=== PATIENT | male | born 1930 | race African-American/Black ===

== ENCOUNTER → 2016-05-28 | Day surgery (SDC) | payer MEDICARE, MEDICAID ==
--- NOTE | 2016-05-24 10:43 | Pre-Procedure Note/Attestation ---
Pre-Procedure Note/Attestation Complete Prior to Procedure Planned Procedure: right Procedure Narrative: phaco with IOL Indications for Procedure Pre-Operative Diagnosis: cataract Attestation I attest that I discussed the nature of the procedure; its benefits; risks and complications; and alternatives (and the risks and benefits of such alternatives ), prior to the procedure, with the patient (or the patient's legal enrollment representative). I attest that, if there was a reasonable possibility of needing a blood transfusion, the patient (or the patient's legal enrollment representative) was given the [facility] standardized written summary, pursuant to the [place] Blood Safety Act ([place] Health and Safety Code # 1645, as amended). I attest that I re-evaluated the patient just prior to the surgery and that there has been no change in the patient's H&P, except as documented below: JENAE SALGADO May 24, 2016 10:43
--- NOTE | 2016-05-24 10:45 | Opthalmology H&P ---
Ophthalmology H&P H&P Chief Complaint: decreased vision in right eye HPI Vision Affects Ability to: read, focus/use eyes together, manage personal affairs HPI Narrative blurry vision Exam Visual Acuity: OD: 20/60 OS; 20/60 Tension: OD: 16 OS: 14 Eye Exam: normal OU: anterior chambers, corneas, external exam, levator function, marginal reflex distance, palpebral fissure-width, findings: fundus exam - AMD OU, lens - OD: ns OS: ns Attestation Attestation The risks and benefits of the surgery as well as alternative procedures were explained to the patient in detail. JENAE SALGADO May 24, 2016 10:45
[~2016-05-28] VITALS: Ht 174 cm; Wt 61.2 kg
[2016-05-28] VITALS (10 sets, daily range): BP systolic 148–177; BP diastolic 67–95
[~2016-05-28] MED LIST: Akten 3.5% 1ml Btl RIGHT EYE ONE; BSS 15ml BTL ONE; BSS 500ml btl ONE; Dexamethasone 4mg/ml vial ONE; EPINEPHrine 1mg/1ml Amp ONE; LR 1000ml ONE; LYRICA75 M1 ORAL; Maxitrol Opth Oint 3.5gm ONE; Midazolam 2mg/2ml Inj ONE; NS Irrig 1000ml ONE; OMEPRAZOLE20 M2 ORAL; POLYETHYLENE GL17 GM ORAL; Povidone-Iodine 5% opth solution ONE; Pred Forte 1% Opth Susp 1ml ONE; SIMVASTATIN80 MG ORAL; STOOL SOFTENER100 MG PO; Sodium Hyaluronate 14 mg/ml 0.85ml ONE; Sterile Water Irrig 1000ml IRRIG ONE; TAMSULOSIN HCL0.4 MG ORAL; Tobramycin Op Soln 0.3% RIGHT EYE ONE; ZETIA10 MG ORAL
[2016-05-28] MEDS: Diclofenac Sod 0.1% Op Soln RIGHT EYE SCH ×3 (09:02→09:19)
[2016-05-28] MEDS: Tropicamide 1% Opth Soln RIGHT EYE SCH ×3 (09:02→09:19)
[2016-05-28] MEDS: Phenylephrine 10% Opth Soln 5ml RIGHT EYE SCH ×3 (09:03→09:19)
[2016-05-28] MEDS: Cyclopentolate 1% Opth Sol RIGHT EYE SCH ×3 (09:04→09:19)
--- NOTE | 2016-05-28 10:52 | Immediate Post-Op Evaluation ---
Immediate Post-Op Evalulation Immediate Post-Op Evalulation Procedure: cataract extraction right eye Date of Evaluation: May 28, 2016 Time of Evaluation: 10:51 IV Fluids: 300 Blood Pressure Systolic: 140 Blood Pressure Diastolic: 60 Pulse Rate: 74 Respiratory Rate: 14 O2 Sat by Pulse Oximetry: 99 Nausea: No Vomiting: No Complications none Patient Status: awake, reacts, patent Hydration Status: adequate Drug: none BENITORIJONATHAN MARQUEZ [employer]PER REPAIR May 28, 2016 10:52
--- NOTE | 2016-05-28 10:55 | Anethesia Preoperative Eval ---
Anesthesia Pre-op PMH/ROS General Date of Evaluation: May 28, 2016 Time of Evaluation: 10:00 Anesthesiologist: jin ASA Score: ASA 2 Mallampati Score Class I : Soft palate, uvula, fauces, pillars visible Class II: Soft palate, uvula, fauces visible Class III: Soft palate, base of uvula visible Class IV: Only hard plate visible Mallampati Classification: Class II Surgeon: aicha Diagnosis: cataract Surgical Procedure: cataract extraction with IOL Anesthesia History: none Family History: no anesthesia problems Allergies: Coded Allergies: No Known Allergies (Unverified , 05/24/16) Past Medical History Cardiovascular: Reports: HTN Gastrointestinal/Genitourinary: Denies: CRI, ESRD, GERD, other Neurologic/Psychiatric: Reports: other - BPH Endocrine: Denies: DM, hypothyroidism, other, steroids HEENT: Reports: cataract (L) Hematology/Immune: Denies: DVT, anemia, bleeding disorder, other Anesthesia Pre-op Phys. Exam Physician Exam Last Vital Signs Date Time Temp Pulse Resp B/P Pulse Ox O2 Delivery O2 Flow Rate FiO2 05/28/16 09:13 97.5 52 18 148/67 98 Room Air Constitutional: NAD Neurologic: CN 2-12 intact Cardiovascular: RRR Respiratory: CTA Gastrointestinal: S/NT/ND Airway Exam Mallampati Score: Class II MO: full ROM: full Dentures: no lower, no upper Anesthesia Pre-op A/P Studies Pre-op Studies: EKG - SR Risk Assessment & Plan Assessment: denies recent changes in health Plan: mac Status Change Before Surgery: No Pre-Antibiotics Drug: none JONATHAN HUERTA CRNA May 28, 2016 10:55
--- NOTE | 2016-05-28 11:59 | 48 Hour Post Anesthesia Eval ---
Post Anesthesia Evaluation Procedure: cataract extraction right eye Date of Evaluation: May 28, 2016 Time of Evaluation: 11:58 Blood Pressure Systolic: 168 0: 50 Pulse Rate: 74 Temperature (Fahrenheit): 98 Airway: patent Nausea: No Vomiting: No Hydration Status: adequate Mental Status/LOC: patient returned to baseline Post-Anesthesia Complications: none Follow-up care needed: N/A JONATHAN HUERTA CRNA May 28, 2016 11:59
--- NOTE | 2016-05-28 14:58 | Brief Operative Note ---
Immediate Post Operative Note Operative Note Chief Complaint: blurry vision Pre-op Diagnosis: cataract, OD Procedure: phaco with IOL, OD Post-op Diagnosis: Pseudophakia, OD Post-op Diagnosis: same as pre-op Findings: consistent w/pre-op dx studies Surgeon: Dilcia Anesthesiologist: Johan Anesthesia: MAC Specimen: none Complications: none Condition: stable Estimated Blood Loss: none Drains: none Implant(s) used?: Yes JENAE SALGADO May 28, 2016 14:58
--- NOTE | 2016-05-28 15:44 | Operative Note - PDOC ---
Operative Note Operative Note Date of Operation/Procedure: May 28, 2016 Chief Complaint: blurry vision Pre-op Diagnosis: cataract, OD Procedure: phaco with IOL, OD Post-op Diagnosis: Pseudophakia, OD Post-op Diagnosis: same as pre-op Operative Findings: consistent w/pre-op dx studies Surgeon: Dilcia Anesthesiologist: Johan Anesthesia: MAC Specimen: none Complications: none Condition: stable Estimated Blood Loss: none Drains: none Implant(s) used?: Yes Indications for Procedure cataract Description of Procedure This patient has been complaining visually significant cataract in the affected eye with the best corrected visual acuity under moderate glare conditions worse. The patient complains of difficulties with glare in performing activities of daily living and wants to manage personal affairs with comfort and accuracy and see well enough to move with safety at home and outdoors. ~~~ The risks, benefits and alternatives of the procedure were discussed with the patient in the office prior to scheduling surgery. All questions from the patient were answered after the surgical procedure was explained in detail. The risks of the procedure as explained to the patient include, but are not limited to, pain, infection, bleeding, loss of vision, retinal detachment, need for further surgery, loss of lens nucleus, double vision, etc. Alternative procedures were discussed which include, to do nothing or seek a second opinion. Informed consent for this procedure was obtained from the patient. The patient was referred to a primary care physician for a cardiopulmonary clearance prior to surgery, after proper evaluation was done patient was properly scheduled for outpatient surgery. The patient was brought to the operating room where the anesthesiologist established I.V. lines and cardiac monitoring leads. Mild intravenous sedation was administered.~~ The patient was then prepared with a 5% solution of povidone -iodine to the conjunctival fornix and lashes, and a 10% solution of povidone- iodine to the lids and periorbital skin. The patient was then draped in the usual sterile fashion. A lid speculum was then placed in the operative eye. A keratome blade was then used to create a biplanar incision into the anterior chamber. Viscoelastics was then instilled into the anterior chamber. A capsulorrhexis was then fashioned with an utrata forceps then hydrodissection and hydro delineation of the the lens nucleus. Paracentesis incision was made at 3 o'clock with sharp blade. The phacoemulsification unit, after being properly adjusted~ and tested, was then used to emulsify the nucleus. Residual cortical material was aspirated with the irrigation and aspiration unit. Healon was then instilled into the anterior chamber. The corneal wound was then enlarged to the size of the optic with the stephon keratome blade. The intraocular lens was then inspected for right~ power and size~ and thought to be satisfactory. Then the lens was gently placed in the capsular bag. Positioning within the capsular bag was confirmed by direct visualization. Optic centration was accomplished with a Sinskey hook. Viscoelastics~ was removed from the anterior chamber using the irrigation and aspiration unit. The corneal wound was then tested for leaks and none were found. The lid speculum were then removed. Sponge and needle counts were correct. An eye patch and shield were placed over the operative eye. The patient was taken to the recovery room in stable condition. There were no complications. The patient tolerated the procedure well. The patient was then transferred to the ambulatory surgery unit in stable and satisfactory condition , was given detailed written instructions and asked to follow up~ in the office the next day. ~ ~ Dictated & Transcribed: [facility] Tad MASON JAMES May 28, 2016 15:44
== END | disposition home or self-care (01) ==
LOC: SUR 07:41
DX: H26.9 Unspecified cataract (principal); I10 Essential (primary) hypertension; E78.00 Pure hypercholesterolemia, unspecified; N40.0 Benign prostatic hyperplasia without lower urinary tract symptoms; K59.00 Constipation, unspecified; Z87.891 Personal history of nicotine dependence
CPT/HCPCS: 66984; J0171; J1100; J2250; J3370; J7120; V2632; 94003; 94150

== ENCOUNTER 2016-12-14 06:09 | Day surgery (SDC) | payer MEDICARE, MEDICAID ==
--- NOTE | 2016-12-13 10:59 | Pre-Procedure Note/Attestation ---
Pre-Procedure Note/Attestation Complete Prior to Procedure Planned Procedure: left Procedure Narrative: phaco with IOL Indications for Procedure Pre-Operative Diagnosis: Cataract Attestation I attest that I discussed the nature of the procedure; its benefits; risks and complications; and alternatives (and the risks and benefits of such alternatives ), prior to the procedure, with the patient (or the patient's legal front desk representative). I attest that, if there was a reasonable possibility of needing a blood transfusion, the patient (or the patient's legal front desk representative) was given the [facility] standardized written summary, pursuant to the [place] Blood Safety Act ([place] Health and Safety Code # 1645, as amended). I attest that I re-evaluated the patient just prior to the surgery and that there has been no change in the patient's H&P, except as documented below: JENAE SALGADO Dec 13, 2016 10:59
--- NOTE | 2016-12-13 11:04 | Opthalmology H&P ---
Ophthalmology H&P H&P Chief Complaint: decreased vision in left eye HPI Vision Affects Ability to: read, focus/use eyes together, manage personal affairs HPI Narrative blurry vision Exam Visual Acuity: OD: 20/30 OS: 20/100 Tension: OD: 13 OS: 15 Eye Exam: normal OU: external exam, palpebral fissure-width, marginal reflex distance, levator function, corneas, anterior chambers, fundus exam, findings: lens - OD: IOL OS: ns Assessment/Plan Diagnosis: (1) Cataract Treatment Plan: cataract extraction w/ lens implant Goals of Treatment: improvement of vision, enhance quality of life Attestation Attestation The risks and benefits of the surgery as well as alternative procedures were explained to the patient in detail. JENAE SALGADO Dec 13, 2016 11:04
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
[~2016-12-14] VITALS: Ht 175.3 cm; Wt 66.2 kg
[2016-12-14] VITALS (13 sets, daily range): BP systolic 138–167; BP diastolic 74–99
[~2016-12-14 06:09] MED LIST changes: -Akten 3.5% 1ml Btl RIGHT EYE ONE; -BSS 15ml BTL ONE; -BSS 500ml btl ONE; -Dexamethasone 4mg/ml vial ONE; -EPINEPHrine 1mg/1ml Amp ONE; -LR 1000ml ONE; -Maxitrol Opth Oint 3.5gm ONE; -Midazolam 2mg/2ml Inj ONE; -NS Irrig 1000ml ONE; -Povidone-Iodine 5% opth solution ONE; -Pred Forte 1% Opth Susp 1ml ONE; -Sodium Hyaluronate 14 mg/ml 0.85ml ONE; -Sterile Water Irrig 1000ml IRRIG ONE; -Tobramycin Op Soln 0.3% RIGHT EYE ONE
[2016-12-14] MEDS ORDERED: Akten 3.5% 1ml Btl LEFT EYE ONE (07:00)
[2016-12-14] MEDS ORDERED: blood pressure pill PO (08:30)
[2016-12-14] MEDS: Tropicamide 1% Opth 15ml Soln LEFT EYE SCH ×3 (08:31→08:49)
[2016-12-14] MEDS: Tobramycin Op Soln 0.3% 5ml LEFT EYE SCH ×3 (08:32→08:49)
[2016-12-14] MEDS: Phenylephrine 10% Opth Soln 5ml LEFT EYE SCH ×3 (08:32→08:49)
[2016-12-14] MEDS: Ketorolac Tromethamine Opth 5ml Soln LEFT EYE SCH ×3 (08:32→08:49)
[2016-12-14] MEDS: Cyclopentolate 1% Opth Sol 2ml LEFT EYE SCH ×3 (08:32→08:49)
[2016-12-14] MEDS ORDERED: BSS 500ml btl ONE (09:00)
[2016-12-14] MEDS ORDERED: Midazolam 2mg/2ml Inj ONE (09:00)
[2016-12-14] MEDS ORDERED: Maxitrol Opth Oint 3.5gm ONE (09:00)
[2016-12-14] MEDS ORDERED: LR 1000ml ONE (09:00)
[2016-12-14] MEDS ORDERED: fentaNYL 100 mcg/2 mL IV ONE (09:00)
[2016-12-14] MEDS ORDERED: Pred Forte 1% Opth Susp 1ml ONE (09:00)
[2016-12-14] MEDS ORDERED: Sterile Water Irrig 1000ml IRRIG ONE (09:00)
[2016-12-14] MEDS ORDERED: Dexamethasone 4mg/ml vial ONE (09:00)
[2016-12-14] MEDS ORDERED: Pilocarpine 2% Opth 15ml Soln ONE (09:00)
[2016-12-14] MEDS ORDERED: Tetracaine 0.5% Opth 4ml Soln ONE (09:00)
[2016-12-14] MEDS ORDERED: EPINEPHrine 1mg/1ml Amp ONE (09:00)
--- NOTE | 2016-12-14 09:39 | Anethesia Preoperative Eval ---
Anesthesia Pre-op PMH/ROS General Date of Evaluation: Dec 14, 2016 Time of Evaluation: 09:10 Anesthesiologist: April ASA Score: ASA 3 Mallampati Score Class I : Soft palate, uvula, fauces, pillars visible Class II: Soft palate, uvula, fauces visible Class III: Soft palate, base of uvula visible Class IV: Only hard plate visible Mallampati Classification: Class II Surgeon: Dilcia Diagnosis: L eye cataract Surgical Procedure: L eye cataract extraction Anesthesia History: none Family History: no anesthesia problems Allergies: Coded Allergies: No Known Allergies (Unverified , 05/24/16) Medications: see eMAR Past Medical History Cardiovascular: Reports: HTN, Denies: CAD, [place], valve dz, arrhythmia, other Pulmonary: Denies: asthma, COPD, LURDES, other Gastrointestinal/Genitourinary: Reports: GERD, CRI - Cr. > 1.4, Denies: ESRD, other Neurologic/Psychiatric: Reports: depression/anxiety, Denies: dementia, CVA, TIA, other Endocrine: Reports: hypothyroidism, Denies: DM, steroids, other HEENT: Reports: cataract (L), cataract (R), Denies: glaucoma, [place] (L), [place] (R), other Hematology/Immune: Reports: anemia - mild, Denies: DVT, bleeding disorder, other Musculoskeletal/Integumentary: Reports: DJD, Denies: OA, RA, DDD, edema, other Other: other - malnourished PMH Narrative: as above PSxH Narrative: see H&P Anesthesia Pre-op Phys. Exam Physician Exam Last Vital Signs Date Time Temp Pulse Resp B/P (MAP) Pulse Ox O2 Delivery O2 Flow Rate FiO2 12/14/16 08:34 97.3 57 17 158/77 99 Room Air Constitutional: NAD Neurologic: CN 2-12 intact Cardiovascular: RRR, no M/R/G Respiratory: CTA Gastrointestinal: S/NT/ND Airway Exam Mallampati Score: Class II MO: limited Neck: stiff ROM: limited Teeth: missing Dentures: upper, lower Anesthesia Pre-op A/P Labs see chart Risk Assessment & Plan Assessment: ASA 3 Plan: CATALINA PEREZ M.D. Dec 14, 2016 09:39
[2016-12-14] MEDS ORDERED: LR 1000ml 1,000 ML IVLG SCH (09:49)
[2016-12-14] MEDS ORDERED: DiphenhydrAMINE 50mg/ml Inj IVP PRN (10:00)
[2016-12-14] MEDS ORDERED: fentaNYL 100 mcg/2 mL IV PRN (10:00)
--- NOTE | 2016-12-14 10:37 | Immediate Post-Op Evaluation ---
Immediate Post-Op Evalulation Immediate Post-Op Evalulation Procedure: L eye cataract extraction with IOL Date of Evaluation: Dec 14, 2016 Time of Evaluation: 09:49 IV Fluids: 200 Blood Products: none Estimated Blood Loss: none Urinary Output: none Blood Pressure Systolic: 156 Blood Pressure Diastolic: 78 Pulse Rate: 58 Respiratory Rate: 20 O2 Sat by Pulse Oximetry: 98 Temperature (Fahrenheit): 97.6 Pain Score (1-10): 1 Nausea: No Vomiting: No Complications none Patient Status: awake, patent, none Hydration Status: adequate CATALINA TABARES M.D. Dec 14, 2016 10:37
--- NOTE | 2016-12-14 13:42 | 48 Hour Post Anesthesia Eval ---
Post Anesthesia Evaluation Procedure: L eye cataract extraction with IOL Date of Evaluation: Dec 14, 2016 Time of Evaluation: 10:52 Blood Pressure Systolic: 162 0: 74 Pulse Rate: 58 Respiratory Rate: 20 Temperature (Fahrenheit): 97.5 O2 Sat by Pulse Oximetry: 98 Airway: patent Nausea: No Vomiting: No Pain Intensity: 1 Hydration Status: adequate Cardiopulmonary Status: stable Mental Status/LOC: patient returned to baseline Follow-up Care/Observations: n/a Post-Anesthesia Complications: none Follow-up care needed: ready to discharge CATALINA TABARES M.D. Dec 14, 2016 13:42
[2016-12-14] MEDS ORDERED: BSS 15ml BTL ONE (15:05)
[2016-12-14] MEDS ORDERED: Povidone-Iodine 5% opth solution ONE (15:05)
[2016-12-14] MEDS ORDERED: Sodium Hyaluronate 14 mg/ml 0.85ml ONE (15:05)
--- NOTE | 2016-12-17 09:13 | Brief Operative Note ---
Immediate Post Operative Note Operative Note Chief Complaint: blurry vision, OS Pre-op Diagnosis: Cataract, OS Procedure: phaco with IOL, OS Post-op Diagnosis: Pseudophakia, OS Post-op Diagnosis: same as pre-op Findings: consistent w/pre-op dx studies Surgeon: Dilcia Anesthesiologist: April Anesthesia: MAC Specimen: none Complications: none Condition: stable Fluids: LR Estimated Blood Loss: none Drains: none Implant(s) used?: Yes JENAE SALGADO Dec 17, 2016 09:13
--- NOTE | 2016-12-18 09:13 | Operative Note - PDOC ---
Operative Note Operative Note Date of Operation/Procedure: Dec 14, 2016 Chief Complaint: blurry vision, OS Pre-op Diagnosis: Cataract, OS Procedure: phaco with IOL, OS Post-op Diagnosis: Pseudophakia, OS Post-op Diagnosis: same as pre-op Operative Findings: consistent w/pre-op dx studies Surgeon: Dilcia Anesthesiologist: April Anesthesia: MAC Specimen: none Complications: none Condition: stable Fluids: LR Estimated Blood Loss: none Drains: none Implant(s) used?: Yes Indications for Procedure cataract Description of Procedure This patient has been complaining visually significant cataract in the affected eye with the best corrected visual acuity under moderate glare conditions worse. The patient complains of difficulties with glare in performing activities of daily living and wants to manage personal affairs with comfort and accuracy and see well enough to move with safety at home and outdoors. The risks, benefits and alternatives of the procedure were discussed with the patient in the office prior to scheduling surgery. All questions from the patient were answered after the surgical procedure was explained in detail. The risks of the procedure as explained to the patient include, but are not limited to, pain, infection, bleeding, loss of vision, retinal detachment, need for further surgery, loss of lens nucleus, double vision, etc. Alternative procedures were discussed which include, to do nothing or seek a second opinion. Informed consent for this procedure was obtained from the patient. The patient was referred to a primary care physician for a cardiopulmonary clearance prior to surgery, after proper evaluation was done patient was properly scheduled for outpatient surgery. The patient was brought to the operating room where the anesthesiologist established I.V. lines and cardiac monitoring leads. Mild intravenous sedation was administered. The patient was then prepared with a 5% solution of povidone- iodine to the conjunctival fornix and lashes, and a 5% solution of povidone- iodine to the lids and periorbital skin. The patient was then draped in the usual sterile fashion. A lid speculum was then placed in the operative eye. A keratome blade was then used to create a biplanar incision into the anterior chamber. Viscoelastics was then instilled into the anterior chamber. A capsulorrhexis was then fashioned with an utrata forcepsfollowed by hydrodissection and hydro delineation of the lens nucleus. Paracentesis incision was made at 3 o'clock with sharp blade. The phacoemulsification unit, after being properly adjusted and tested, was then used to emulsify the nucleus and residual cortical material was aspirated with the irrigation and aspiration unit. Healon was then instilled into the anterior chamber. The corneal wound was then enlarged to the size of the optic with the stephon keratome blade. The intraocular lens was then inspected for right power and size and thought to be satisfactory. Then the lens was gently placed in the capsular bag. Positioning within the capsular bag was confirmed by direct visualization. Optic centration was accomplished with a Sinskey hook. Viscoelastics was removed from the anterior chamber using the irrigation and aspiration unit. The corneal wound was then tested for leaks and none were found. The lid speculum were then removed. Sponge and needle counts were correct. An eye patch and shield were placed over the operative eye. The patient was taken to the recovery room in stable condition. There were no complications. The patient tolerated the procedure well. The patient was then transferred to the ambulatory surgery unit in stable and satisfactory condition , was given detailed written instructions and asked to follow up in the office the next day. Dictated & Transcribed: [facility] Tad MASON JAMES Dec 18, 2016 09:13
== END 2016-12-14 12:15 | disposition home or self-care (01) ==
LOC: SUR 06:09
DX: H26.9 Unspecified cataract (principal); K21.9 Gastro-esophageal reflux disease without esophagitis; F32.9 Major depressive disorder, single episode, unspecified; N40.0 Benign prostatic hyperplasia without lower urinary tract symptoms; I12.9 Hypertensive chronic kidney disease with stage 1 through stage 4 chronic kidney disease, or unspecified chronic kidney disease; N18.9 Chronic kidney disease, unspecified; F41.9 Anxiety disorder, unspecified; E03.9 Hypothyroidism, unspecified; Z83.3 Family history of diabetes mellitus; R00.1 Bradycardia, unspecified; D64.9 Anemia, unspecified; D69.6 Thrombocytopenia, unspecified
CPT/HCPCS: 66984; J0171; J1100; J2250; J3010; J3370; J7120; V2632; 94003; 94150